=== PATIENT | female | born 1990 | race Hispanic/Latino ===

== ENCOUNTER 2017-08-22 08:45 | Day surgery (SDC) | payer SELFPAY ==
[2017-08-14 20:02] VITALS: BMI 20.7
[2017-08-22 09:37] LABS: HEMATOCRIT 40.3 % (34.0-47.0); MEAN CELL VOLUME 83.7 fl (81.0-99.0); MEAN CORPUSCULAR HGB CONC 34.7 g/dL (33.0-37.0); WHITE BLOOD COUNT 7.2 K/uL (4.8-10.8)
[2017-08-22] MEDS ORDERED: Lactated Ringer's 1,000 ML IV ONE ×2 (09:44→14:04)
[2017-08-22] MEDS ORDERED: Bupivacaine 0.5% Inj(30mL) ONE (14:47)
[2017-08-22] MEDS ORDERED: Propofol 10 mg/ml Inj (20 ML) ONE ×2 (14:48→16:17)
[2017-08-22] MEDS ORDERED: Midazolam 2 MG/2 ML VIAL ONE (14:49)
[2017-08-22] MEDS ORDERED: Rocuronium 10 mg/ml (5 ml) ONE (14:49)
[2017-08-22] MEDS ORDERED: Dexamethasone 4 mg/1 ml ONE (14:50)
[2017-08-22] MEDS ORDERED: Lactated Ringer's 1,000 ML IV SCH (16:15)
[2017-08-22] MEDS ORDERED: Neostigmine Methylsulfate 3mg/3ml Syringe IV ONE (16:43)
[2017-08-22] MEDS ORDERED: Bupivacaine 0.5% 50 ML IJ ONE (16:52)
[2017-08-22] MEDS ORDERED: Oxycodone/Acetaminophen 5/325 mg Tab PO PRN (19:28)
[2017-08-22 20:31] VITALS: RESP 20; TEMP 98.9; O2SAT 98
[2017-08-22 21:36] VITALS: BP 101/49; PULSE 94
--- NOTE | 2017-09-09 18:27 | OP ---
PROCEDURE DATE: 08/22/2017 PREOPERATIVE DIAGNOSES: Pelvic pain, dysmenorrhea, dyspareunia, rule out endometriosis. POSTOPERATIVE DIAGNOSES: Pelvic pain, dysmenorrhea, dyspareunia, rule out endometriosis. PROCEDURE PERFORMED: Laparoscopic total peritoneal ablation of endometriosis utilizing laser. SURGEON: Misael Mcelroy MD. MANAGER CONTROL: Luca Colon MD. COMPLICATIONS: None. ESTIMATED BLOOD LOSS: Minimal. PATHOLOGY SPECIMEN: None. DESCRIPTION OF PROCEDURE: After adequate anesthesia was obtained, patient was placed in the dorsal lithotomy position. She was then prepped and draped. The surgeon gowned and gloved. A cystoscopy was performed revealing a normal-appearing cavity. Attention was then on the abdomen where an incision was made with an open laparoscopy technique and a laparoscope was then inserted. Utilizing, through an additional port, helium laser, the pelvis was visualized and areas of erythema were identified. A full ablation of the peritoneum was performed in the right pelvic sidewall, left pelvic sidewall, posterior aspect of the uterus, and cul-de-sac. This was done with extreme care to avoid any damage to any vital structures. After the ablation was performed, it was checked for hemostasis, appeared to be excellent. The instruments were removed. The trocars were removed. The abdomen desufflated. The incision was closed with PDS for the fascia and 4-0 Monocryl for the skin. At the end of the procedure, all tapes and instrument counts were correct. Misael Mcelroy MD
== END 2017-08-22 21:40 | disposition home or self-care (01) ==
LOC: H.OPSURG 08:45 → H.PEDS 20:28 → H.OPSURG 21:40
PROVIDERS: ATTEND Obstetrics & Gynecology Reproductive Endocrinology
DX: N80.0 Endometriosis of uterus (principal); R10.2 Pelvic and perineal pain; N94.6 Dysmenorrhea, unspecified
CPT/HCPCS: 36415; 58563; 85027; 86850; 86900; C1729; J1100; J1885; J2001; J2250; J2270; J2405; J2704; J2710; J3010; J7030; J7040; J7120